=== PATIENT | male | born 1980 | race Caucasian/White ===

== ENCOUNTER 2021-01-31 19:32 | Emergency (ER) | payer OTHER, SELFPAY ==
[2021-01-31 19:45] VITALS: BP 136/91; PULSE 84; RESP 20; TEMP 36.8; O2SAT 98
--- NOTE | 2021-01-31 19:50 | ED.UPPEXIN ---
HPI - Extremity Injury (Upper) General Chief Complaint: Upper Respiratory Infection Stated Complaint: sinus infection Time Seen by Provider: 01/31/21 19:40 Source: patient Mode of arrival: ambulatory Limitations: no limitations History of Present Illness HPI narrative: Sukhwinder Shea is a 40 yo male with no prior medical history of tobacco abuse who comes to [facility] with a cough shortness of breath and fatigue that started 2 weeks ago. He was fully vaccinated for Covid but has been unable to show the symptoms of his upper respiratory infection. He has taken some antibiotics from friends. Has not seen a PCP for care Related Data Allergies Allergy/AdvReac Type Severity Reaction Status Date / Time No Known Allergies Allergy Verified 01/31/21 19:55 Review of Systems Review of Systems: Narrative: CONSTITUTIONAL: Denies fever, chills, sweats. Fatigue EYES: Denies visual changes, redness, discharge. ENT: Denies rhinorrhea, has congestion, has ore throat, otalgia. CARDIOVASCULAR: Denies chest pain, palpitations, edema. RESPIRATORY:has dyspnea, wheezing, has cough GASTROINTESTINAL: Denies abdominal pain, nausea, vomiting, diarrhea. GENITOURINARY: Denies dysuria, hematuria, abnormal discharge SKIN: Denies rash or itching. NEUROLOGIC: Denies numbness, or focal weakness. PSYCHIATRIC: Denies anxiety or depression. PMFSH Past Medical History Medical History No acute medical problems Family History Family History (Updated 01/31/21 @ 19:55 by Aleshia Moseley CNP) Other Diabetes mellitus Social History Social History (Updated 01/31/21 @ 19:55 by Aleshia Moseley CNP) Smoking packs per day: 1.0 Smoking cigarettes per day: 20.0 Smoking status: Current every day smoker Alcohol intake: current Comments At time of signature, I agree with nursing past medical, surgical, social and family history. There is no relevant family history pertinent to the presenting complaint. Patient has blood pressure elevation here, has a diagnosis of hypertension but has lost his job and just started again with [employer]. Has not had blood pressure medication Exam Narrative: Exam Narrative: My GENERAL: This is a well-nourished, well-developed patient, in moderate distress. HEAD: normocephalic, atraumatic. EYES: Sclera clear/white. Vision is grossly intact. EARS: External ears normal, a. Hearing grossly intact. NOSE: External nose normal without nasal discharge, nares without rednesshas rhinorrhea. THROAT: Mucous membranes moist, posterior pharynx erythema NECK: Neck supple, non-tender CARDIOVASCULAR: Regular rate and rhythm without murmurs, gallops, or rubs. RESPIRATORY: Coarse to auscultation. Breath sounds equal bilaterally. No wheezes, rales, or rhonchi. GASTROINTESTINAL: Abdomen soft, SKIN: warm, intact with no suspicious lesions or rash, good texture and turgor. NEURO: awake, alert, and oriented to person, place and time. There were no obvious focal neurologic abnormalities. Steady gait EXTREMITIES: Normal range of motion. BACK: Nontender without deformity Course Course Emergency Course: [facility] of shortness of breath coughing and generally not feeling well x2 weeks he has been taking some antibiotics from his friends but it was a complete request from a physician Rapid Covid test done- negative Started on Zithromax, albuterol, prednisone, Kim Naz Has a diagnosis of hypertension-started on lisinopril 5 mg and should follow-up with primary care physician-sheet given to the patient Vital Signs Vital signs: Vital Signs Temperature 98.3 F 01/31/21 19:45 Pulse Rate 84 01/31/21 19:45 Respiratory Rate 20 01/31/21 19:45 Blood Pressure 136/91 H 01/31/21 19:45 Pulse Oximetry 98 01/31/21 19:45 Temperature 98.3 F 01/31/21 19:45 Pulse Rate 84 01/31/21 19:45 Respiratory Rate 20 01/31/21 19:45 Blood Pressure 13
== END 2021-01-31 20:17 | disposition home or self-care (01) ==
PROVIDERS: Emergency Provider Nurse Practitioner
DX: J40 Bronchitis, not specified as acute or chronic (principal); Z20.822 Contact with and (suspected) exposure to COVID-19; F17.210 Nicotine dependence, cigarettes, uncomplicated
CPT/HCPCS: 87426; 99213; C9803; G0463